=== PATIENT | female | born 1980 ===

== ENCOUNTER 2017-12-27 13:23 | Emergency (ER) | payer OTHER ==
[~2017-12-27] VITALS: Ht 170.2 cm; Wt 83.9 kg
== END 2017-12-27 18:25 | disposition home or self-care (01) ==
LOC: ER 13:23
DX: M62.838 Other muscle spasm (principal)

== ENCOUNTER 2018-04-06 14:15 | Outpatient (CLI) | payer OTHER | END 2018-04-06 14:29 | disposition home or self-care (01) | LOC: SONOGRAMA 14:15 | DX: E04.0 Nontoxic diffuse goiter (principal) ==

== ENCOUNTER 2022-05-14 09:14 | Outpatient (CLI) | payer OTHER | END 2022-05-14 09:24 | disposition home or self-care (01) | LOC: RX STUDY 09:14 | PROVIDERS: ATTEND Obstetrics & Gynecology Reproductive Endocrinology | DX: N93.0 Postcoital and contact bleeding (principal) ==

== ENCOUNTER 2024-12-20 09:51 | Outpatient (CLI) | payer OTHER | END 2024-12-20 09:54 | disposition home or self-care (01) | LOC: PRENATAL 09:51 | PROVIDERS: ATTEND Obstetrics & Gynecology Maternal & Fetal Medicine | DX: O36.8199 Decreased fetal movements, unspecified trimester, other fetus (principal) ==

== ENCOUNTER 2025-01-04 15:00 | Inpatient (IN) | payer OTHER ==
[~2025-01-04] VITALS: Ht 167.6 cm; Wt 3.6 kg
[2025-01-06] MEDS ORDERED: PRENATA CHEWAB1 EACH PO (17:28)
[2025-01-09 07:20] VITALS: BP 122/76
[2025-01-09] MEDS ORDERED: AZITHROMYCIN 500 MG TABLET PO STA (08:22)
[2025-01-09] MEDS ORDERED: AMPICILLIN SODIUM 2,000 MG VIAL IV STA (08:22)
[2025-01-09] MEDS ORDERED: OXYTOCIN 500 ML IV ONE (08:30)
[2025-01-09] MEDS ORDERED: RINGERS SOLUTION,LACTATED 1,000 ML IV SCH (08:30)
[2025-01-09 08:38] LABS: BASO % 0.2 % (0.1-1.2); EOS # 0.06 (0.04-0.54); EOS % 0.7 % (0.7-7.0); LYMPH # 2.10 (1.18-3.74); LYMPH % 23.8 % (19.3-53.1); MEAN PLATELET VOLUME 10.30 fl (9.4-12.4); MONO # 0.82 (0.24-0.82); MONO % 9.3 % (4.7-12.5); NEUT # 5.78 (1.56-6.13); NEUT % 65.5 % (34.0-71.1); RED CELL DISTRIBUTION WIDTH 20.3 % (11.6-14.4)
[2025-01-09] MEDS ORDERED: AMPICILLIN SODIUM 1,000 MG VIAL IV SCH (09:00)
[2025-01-09 09:46] LABS: INR < 0.93
[2025-01-09 11:43] VITALS: BP 123/72
[2025-01-09 15:39] VITALS: BP 128/76
[2025-01-09] MEDS ORDERED: CITRIC ACID/SODIUM CITRATE 30 ML BLIST.PACK PO SCH (16:20)
[2025-01-09] MEDS ORDERED: CEFAZOLIN SODIUM 1,000 MG VIAL IV SCH (16:20)
[2025-01-09] MEDS ORDERED: ERYTHROMYCIN BASE OPHT 1GM EACH TUBE OP ONE (17:30)
[2025-01-09] MEDS ORDERED: OXYTOCIN 10 UNITS/ML VIAL IV ONE (17:30)
[2025-01-09] MEDS ORDERED: ACETAMINOPHEN 325 MG TABLET PO SCH (18:00)
[2025-01-09] MEDS ORDERED: KETOROLAC TROMETHAMINE 30 MG VIAL IV NR (18:00)
[2025-01-09] MEDS ORDERED: OXYTOCIN 1,000 ML IV SCH (18:00)
[2025-01-09] MEDS ORDERED: MORPHINE SULFATE 4 MG/ML CARTRIDGE IV PRN (18:00)
[2025-01-09] MEDS ORDERED: MORPHINE SULFATE 4 MG/ML VIAL IV ONE (19:30)
[2025-01-09 20:03] VITALS: BP 138/80
[2025-01-10] MEDS ORDERED: KETOROLAC TROMETHAMINE 30 MG VIAL IV SCH
[2025-01-10 00:49] VITALS: BP 126/77
[2025-01-10 02:57] VITALS: BP 129/77
[2025-01-10 08:41] VITALS: BP 119/75
[2025-01-10] MEDS ORDERED: IRON/V.C/V.B12/FOLIC A/VIT. E 1 CAPL CAPLET PO SCH (09:00)
[2025-01-10 09:34] LABS: BASO % 0.1 % (0.1-1.2); EOS # 0.01 (0.04-0.54); EOS % 0.1 % (0.7-7.0); LYMPH # 1.44 (1.18-3.74); LYMPH % 10.3 % (19.3-53.1); MEAN PLATELET VOLUME 9.80 fl (9.4-12.4); MONO # 0.62 (0.24-0.82); MONO % 4.4 % (4.7-12.5); NEUT # 11.75 (1.56-6.13); NEUT % 84.2 % (34.0-71.1); RED CELL DISTRIBUTION WIDTH 20.5 % (11.6-14.4)
[2025-01-10 16:44] VITALS: BP 144/79
[2025-01-11] VITALS: BP 122/77
[2025-01-11] MEDS ORDERED: OxyCODONE HCL 5 MG TABLET (ROXICODONE) PO PRN (06:00)
[2025-01-11 09:05] VITALS: BP 113/74
== END 2025-01-11 18:27 | disposition home or self-care (01) | DRG 788 ==
LOC: LDR 01-09 08:05 → O/R 01-09 16:53 → OB/GYN 01-09 18:24 → O/R 01-10 09:50 → OB/GYN 01-10 09:51
PROVIDERS: Obstetrics & Gynecology; ADMIT Obstetrics & Gynecology Maternal & Fetal Medicine; ATTEND Obstetrics & Gynecology Maternal & Fetal Medicine
PROC: 4A1HXCZ Monitoring of Products of Conception, Cardiac Rate, External Approach (ICD-10-PCS; 2025-01-09)
PROC: 10D00Z1 Extraction of Products of Conception, Low, Open Approach (ICD-10-PCS; principal; 2025-01-09 17:45)
DX: O33.8 Maternal care for disproportion of other origin (principal); Z3A.39 39 weeks gestation of pregnancy; Z37.0 Single live birth

== ENCOUNTER 2025-01-06 15:36 | Outpatient (CLI) | payer OTHER ==
[~2025-01-06] VITALS: Ht 167.6 cm; Wt 88.5 kg
[2025-01-06 15:38] VITALS: BP 117/76
[2025-01-06] MEDS ORDERED: RINGERS SOLUTION,LACTATED 1,000 ML IV SCH (17:15)
[2025-01-06] MEDS ORDERED: PRENATA CHEWAB1 EACH PO (17:28)
[2025-01-06 17:46] LABS: BASO % 0.3 % (0.1-1.2); EOS # 0.03 (0.04-0.54); EOS % 0.3 % (0.7-7.0); LYMPH # 2.06 (1.18-3.74); LYMPH % 19.0 % (19.3-53.1); MEAN PLATELET VOLUME 10.60 fl (9.4-12.4); MONO # 0.79 (0.24-0.82); MONO % 7.3 % (4.7-12.5); NEUT # 7.88 (1.56-6.13); NEUT % 72.7 % (34.0-71.1); RED CELL DISTRIBUTION WIDTH 20.5 % (11.6-14.4)
[2025-01-06 18:12] LABS: INR < 0.93
[2025-01-06 18:15] LABS: ALT/SGPT 17.0 U/L (12-78); AST/SGOT 21.0 U/L (15-37); BILIRUBIN TOTAL 0.32 mg/dL (0.3-1.2); BUN CREA RATIO 11.0 (7.0-25.0); CREATININE SERUM 0.61 mg/dL (0.55-1.02); GFR 106.06; GLOBULINA 3.6 G/DL (2.4-3.5); GLUCOSE FASTING 66.0 mg/dL (65-100); OSMOLALITY SERUM 276.0 MOSM/KG (275-295)
[2025-01-06 20:48] VITALS: BP 108/75
[2025-01-06 23:32] VITALS: BP 96/54; O2SAT 100
[2025-01-07 03:05] VITALS: BP 96/54
[2025-01-07 04:32] VITALS: BP 112/78
== END 2025-01-07 04:32 | disposition home or self-care (01) ==
LOC: OBS/DEL 15:36 → NST 15:36 → OBS/DEL 16:28 → LDR 16:48 → OBS/DEL 16:58
PROVIDERS: ATTEND Obstetrics & Gynecology Gynecology
DX: O26.893 Other specified pregnancy related conditions, third trimester (principal); Z3A.39 39 weeks gestation of pregnancy